=== PATIENT | male | born 1940 | race Caucasian/White ===

== ENCOUNTER → 2016-11-13 | Outpatient (CLI) | payer OTHER ==
--- NOTE | 2016-11-13 16:22 | MR ---
MRI of the Lumbar Spine (Without Contrast) at 1346 hours Clinical Indications: M47.27, spondylosis, with left radiculopathy. Technique: Sagittal and axial T1 and T2 and sagittal STIR MR sequences of the lumbar spine, without contrast. Axial imaging from T12-S1. Findings: Lumbar vertebral bodies are of normal height, without compression fractures. Conus medull avani appears normal and ends at L1-L2. T11-T12: Sagittal images demonstrate moderate degenerative disk disease, with mild disk bulge and ve ntral osteophytes. No central canal or neural foraminal stenosis. T12-L1: Mild degenerative disk disease and mild disk bulge, without central canal or neural foramina l stenosis. L1-L2: Moderate degenerative disk disease, with circumferential disk bulge and mild bilateral facet arthropathy, resulting in mild central canal stenosis, without neural foraminal stenosis. L2-L3: Moderate degenerative disk disease, with right paramedian broad-based 6-mm disk herniation an d moderate bilateral facet arthropathy, resulting in moderate central canal stenosis, minimal retroli sthesis, without neural foraminal stenosis. L3-L4: Mild degenerative disk disease, mild disk bulge, and moderate bilateral facet arthropathy res ulting in mild central canal stenosis, without neural foraminal stenosis. L4-L5: Moderate degenerative disk disease, circumferential disk bulge, left laminectomy, and moderat e right facet arthropathy resulting in moderate left neural foraminal stenosis, mild right neural for aminal stenosis, without central canal stenosis. L5-S1: Moderate degenerative disk disease, with circumferential disk bulge and osteophytes, previous left laminectomy, and mild right facet arthropathy resulting in mild right neural foraminal stenosis , without central canal stenosis. Impressions 1. L2-L3: Moderate central canal stenosis secondary to degenerative grade 1 retrolisthesis, right p aramedian disk herniation, degenerative disk disease, and bilateral facet arthropathy. 2. L3-L4: Mild central canal stenosis secondary to moderate bilateral facet arthropathy, mild degen erative disk disease, and mild disk bulge. 3. Previous left laminectomies at L4-L5 and L5-S1, without central canal stenosis. 4. Please see above findings at specific disk levels.
--- NOTE | 2016-11-13 17:18 | DX ---
Four Views of the Lumbar Spine Standing; AP, Lateral, Flexion and Extension Views Reason for examination: Low back pain and bilateral lower extremity radicular symptomatology in a 76- year-old male. Evaluate for instability. Comparison to lumbar MRI study performed earlier today and previous lumbar radiographic series February 14, 2013. Findings: Multilevel degenerative changes are noted which were fully detailed on the recent MRI repor t. The bone alignment in the neutral position is normal. There is no significant change in alignment with flexion or extension. Impression: Multilevel degenerative changes with no instability identified.
== END ==
LOC: FIMAGING 12:43
PROVIDERS: ATTEND Physician Assistant Surgical
DX: M51.36 Other intervertebral disc degeneration, lumbar region (principal)

== ENCOUNTER 2017-09-13 18:52 | Emergency (ER) | payer OTHER ==
[2017-09-13 19:05] VITALS: TEMP 98.1
--- NOTE | 2017-09-13 19:07 | EDPHY ---
HPI/HX/ROS/PE/MDM Narrative: CHIEF COMPLAINT: Low back pain HPI: The patient is a 76 y/o male with a history of chronic back pain, complaining of back pain and muscle spasms since yesterday. He went for a walk yesterday and felt normal, but one mile into the walk he bent over to tie his shoe and began to have back pain; he did not fall. The pain is decreased while standing and leaning to the left, it is aggravated when he coughs. The pain is also mildly radiating to this legs. He describes his current pain as similar to prior episodes of lumbar back pain. Denies urinary or bowel complaints, numbness or other pertinent symptoms. No fever. REVIEW OF SYSTEMS: Aside from elements discussed in the HPI, a comprehensive 10-point review of systems was reviewed and is negative. PMH: Chronic back pain, L2-3 surgery, hypertension, sleep apnea SOCIAL HISTORY: Friend at bedside, lives in [place], retired PHYSICAL EXAM: General:Patient is standing and leaning to the left, alert, in no acute distress. ENT:Eyes are normal to inspection. ENT inspection normal. Neck: Normal inspection. Full range of motion. Respiratory:No respiratory distress. Breath sounds normal bilaterally. Cardiovascular: Regular rate and rhythm. Strong peripheral pulses. Normal cap refill. Abdomen:The abdomen is nontender to palpation. There are no peritoneal signs. There are normal bowel sounds. No pulsatile mass. Back: Lumbar spine tenderness to palpation. Normal to inspection. Skin: Normal color. No rash. Warm and dry. Extremities: Normal appearance. Full range of motion. Neuro: Oriented x3. Normal motor function. Normal sensory function. ED Course: 2003: Patient is feeling better after 1L IV NS, 0.5mg IV Dilaudid, and 30mg IV Toradol. 2055: Patient's lumbar spine x-ray is negative. 2114: Reassessed patient and discussed imaging findings. He is feeling better after 5mg IV Valium. Return precautions provided; patient is comfortable with this plan. MDM: This gentleman presents with what appears to be an acute exacerbation of chronic lumbar spine pain and radiculopathy. There was no traumatic injury, and patient denies fever, incontinence, numbness, inability to walk, groin anesthesia or abdominal pain. As such, I do not think emergent MRI is indicated. I discussed options with the patient and offered him admission to the hospital for pain control and neurosurgical evaluation, but he declines in favor of going home with prescriptions for pain control. We discussed the fact that his age and use of pain medications in the setting of back pain places him at elevated risk for fall and other injury but he feels he will be safe at home , and his relative is coming over to help him and help him set up a bed in the first floor guest bedroom. I encouraged him to return to the ED tomorrow morning if he feels unsafe at home. 2200: Patient ambulatory without assistance. Steady gait. Feels ready to go home - pain much better. - Data Points Imaging Results: Imaging Impressions Lumbar Spine X-Ray 09/13/17 20:29 Impression: No acute compression fracture or significant change since October 2016. Imaging: I viewed and interpreted images myself Laboratory Results: Laboratory Results 09/13/17 19:18 09/13/17 19:18 09/13/17 09/13/17 19:18 19:18 WBC 2.32 10^3/uL L 10^3/uL (3.80-9.50) RBC 4.25 10^6/uL L 10^6/uL (4.40-6.38) Hgb 13.5 g/dL L g/dL (13.7-17.5) Hct 37.7 % L % (40.0-51.0) MCV 88.7 fL fL (81.5-99.8) MCH 31.8 pg pg (27.9-34.1) MCHC 35.8 g/dL g/dL (32.4-36.7) RDW 13.6 % % (11.5-15.2) Plt Count 126 10^3/uL L 10^3/uL (150-400) MPV 9.8 fL fL (8.7-11.7) Neut % (Auto) 58.6 % % (39.3-74.2) Lymph % (Auto) 30.6 % % (15.0-45.0) [place] % (Auto) 6.9 % % (4.5-13.0) Eos % (Auto) 2.6 % % (0.6-7.6) Baso % (Auto) 0.9 % % (0.3-1.7) Nucleat RBC Rel Count 0.0 % % (0.0-0.2) Absolute Neuts (auto) 1.36 10^3/uL L 10^3/uL (1.70-6.50) Absolute Lymphs (auto) 0.71 10^3/uL L 10^3/uL (1.00-3.00) Absolute Monos (auto) 0.16 10^3/uL L 10^3/uL (0.30-0.80) Absolute Eos (auto) 0.06 10^3/uL 10^3/uL (0.03-0.40) Absolute Basos (auto) 0.02 10^3/uL 10^3/uL (0.02-0.10) Absolute Nucleated RBC 0.00 10^3/uL 10^3/uL (0-0.01) Immature Gran % 0.4 % % (0.0-1.1) Immature Gran # 0.01 10^3/uL 10^3/uL (0.00-0.10) Sodium 129 mEq/L L mEq/L (134-144) Potassium 4.1 mEq/L mEq/L (3.5-5.2) Chloride 97 mEq/L mEq/L (97-110) Carbon Dioxide 20 mEq/l L mEq/l (22-31) Anion Gap 12 mEq/L mEq/L (8-16) BUN 12 mg/dL mg/dL (7-23) Creatinine 1.1 mg/dL mg/dL (0.7-1.3) Estimated GFR > 60 Glucose 102 mg/dL H mg/dL (70-100) Calcium 9.6 mg/dL mg/dL (8.5-10.4) Medications Given: Discontinued Medications Hydrocodone Bitart/Acetaminophen (Ruby 5/325mg Prepack#6) 1 btl TAKEHOME EDNOW ONE Stop: 09/13/17 21:23 Last Admin: 09/13/17 22:00 Dose: 1 btl Diazepam (Valium Injection) 5 mg IVP EDNOW ONE Stop: 09/13/17 20:25 Last Admin: 09/13/17 20:46 Dose: 5 mg Hydromorphone HCl (Dilaudid) 0.5 mg IVP EDNOW ONE Stop: 09/13/17 19:20 Last Admin: 09/13/17 19:52 Dose: 0.5 mg Sodium Chloride (Ns) 1,000 mls @ 0 mls/hr IV EDNOW ONE; Wide Open PRN Reason: Protocol Stop: 09/13/17 19:48 Last Admin: 09/13/17 19:51 Dose: 1,000 mls Ketorolac Tromethamine (Toradol) 30 mg IVP EDNOW ONE Stop: 09/13/17 19:20 Last Admin: 09/13/17 19:51 Dose: 30 mg General Time Seen by Provider: 09/13/17 19:05 Initial Vital Signs: Initial Vital Signs Temperature (C) 36.7 C 09/13/17 19:00 Heart Rate 98 09/13/17 19:00 Respiratory Rate 16 09/13/17 19:00 Blood Pressure 106/61 09/13/17 19:00 O2 Sat (%) 95 09/13/17 19:00 O2 Delivery Mode Room Air O2 (L/minute) 2 Allergies/Adverse Reactions: lorazepam [From Ativan] Allergy (Mild, Verified 12/23/12 12:56) EXCITABLE cyclobenzaprine [From Flexeril] Allergy (Verified 09/13/17 19:05) Home Medications: Medication Instructions Recorded Carisoprodol [Soma (*)] 350 mg PO TIDMEAL #20 tab 09/13/17 Hydrocodone/APAP 5/325 [Ruby 1 - 2 tab PO Q6H PRN #20 tab 09/13/17 5/325 (*)] methylPREDNISolone [Medrol Dose 1 each PO AD #1 ea 09/13/17 Shun] Departure - Departure Disposition: Home, Routine, Self-Care Clinical Impression: Low back pain Qualifiers: Chronicity: acute Back pain laterality: midline Sciatica presence: unspecified whether sciatica present Qualified Code(s): M54.5 - Low back pain Condition: Good Instructions: Hydrocodone/Acetaminophen (By mouth), Acute Low Back Pain (ED), Chronic Back Pain (ED) Additional Instructions: Return to the emergency department for severe pain, fever, numbness, difficulty walking, change in location or nature of pain or other concerns. Use ibuprofen and Tylenol as directed. Take oxycodone, Medrol, and Soma as prescribed. Call you student specialist tomorrow to arrange for evaluation within one week. Referrals: Rose Marie Sethi MD [Primary Care Provider] - As per Instructions Prescriptions: Carisoprodol [Soma (*)] 350 mg PO TIDMEAL #20 tab Hydrocodone/APAP 5/325 [Ruby 5/325 (*)] 1 - 2 tab PO Q6H PRN #20 tab PRN Reason: Pain, Breakthrough methylPREDNISolone [Medrol Dose Shun] 1 each PO AD #1 ea Report Scribed for: Khoa العلي Report Scribed by: Mia Cardenas Date of Report: 09/13/17 Time of Report: 19:06 Physician Review and Approval Statement: Portions of this note were transcribed by an ED scribe. I personally performed the history, physical exam, and medical decision making; and confirm the accuracy of the information in the transcribed note.
[2017-09-13] MEDS ORDERED: KETOROLAC 30 MG/1 ML SDV IVP ONE (19:19)
[2017-09-13] MEDS ORDERED: HYDROmorphONE/DILAUDID 1 MG/ML INJ IVP ONE (19:19)
[2017-09-13 19:37] LABS: % IMMATURE GRANULYOCYTES 0.4 % (0.0-1.1); ABSOLUTE IMMATURE GRANULOCYTES 0.01 10^3/uL (0.00-0.10); ADD DIFF? NO; ADD MORPH? NO; ADD SCAN? NO; ATYPICAL LYMPHOCYTE FLAG 0 (0-99); FRAGMENT RBC FLAG 0 (0-99); HEMATOCRIT 37.7 % (40.0-51.0); HEMOGLOBIN 13.5 g/dL (13.7-17.5); LEFT SHIFT FLG 0 (0-99); LIPEMIA HEMOLYSIS FLAG 90 (0-99); MEAN CELL HEMOGLOBIN 31.8 pg (27.9-34.1); MEAN CELL HEMOGLOBIN CONCENTR. 35.8 g/dL (32.4-36.7); MEAN CELL VOLUME 88.7 fL (81.5-99.8); MEAN PLATELET VOLUME 9.8 fL (8.7-11.7); PLATELET CLUMPS FLAG 0 (0-99); PLATELET COUNT 126 10^3/uL (150-400); RED BLOOD CELL COUNT 4.25 10^6/uL (4.40-6.38); RED CELL DISTRIBUTION WIDTH 13.6 % (11.5-15.2)
[2017-09-13] MEDS ORDERED: NS 1,000 ML IV ONE (19:47)
[2017-09-13 19:50] LABS: ANION GAP 12 mEq/L (8-16); CALCIUM 9.6 mg/dL (8.5-10.4); CARBON DIOXIDE 20 mEq/l (22-31); CHLORIDE 97 mEq/L (97-110); CREATININE 1.1 mg/dL (0.7-1.3); GLOMERULAR FILTRATION RATE > 60; GLUCOSE 102 mg/dL (70-100); POTASSIUM 4.1 mEq/L (3.5-5.2); SODIUM 129 mEq/L (134-144)
[2017-09-13] MEDS ORDERED: DIAZEPAM 10 MG/2 ML SYR IVP ONE (20:24)
[2017-09-13] MEDS ORDERED: HYDROCOD/APAP 5/325 PREPACK#6 BTL TAKEHOME ONE (21:22)
[2017-09-13 22:13] VITALS: BP 136/74; PULSE 97; RESP 18; O2SAT 94
== END 2017-09-13 22:13 | disposition home or self-care (01) ==
DX: M54.5 Low back pain (principal); I10 Essential (primary) hypertension; E86.9 Volume depletion, unspecified
CPT/HCPCS: 72100; J1170; J1885; 96374

== ENCOUNTER 2017-10-06 00:18 | Emergency (ER) | payer OTHER ==
[2017-10-06] MEDS ORDERED: NS 1,000 ML IV ONE (00:25)
--- NOTE | 2017-10-06 00:28 | EDPHY ---
H & P HPI/ROS: HPI CHIEF COMPLAINT: Diarrhea, generalized weakness HISTORY OF PRESENT ILLNESS: Patient is a very pleasant 76-year-old male, significant past medical history for hypertension, chronic back pain and obstructive sleep apnea, presents to the emergency room with diarrhea this evening. He states this started earlier today he has had over 12 episodes of diarrhea. Watery. Denies black tarry stool denies blood in his stool. No fever. Denies vomiting. States he had multiple episodes of diarrhea and feels globally weak. He states he was getting off the toilet this evening and fell forward and landed on the tell without any injury. He decided to call 911 as he is feeling more weak and lives alone is concern for safety. Denies any significant abdominal pain. Past Medical History: Obstructive sleep apnea, hypertension, chronic back pain Past Surgical History: Lumbar surgery Social History: Retired, lives locally, denies illicit drugs alcohol tobacco. Family History: Noncontributory ROS REVIEW OF SYSTEMS: A comprehensive 10 point review of systems is otherwise negative aside from elements mentioned in the history of present illness. Exam Constitutional appears nontoxic triage nursing summary reviewed, vital signs reviewed, awake/alert. Eyes normal conjunctivae and sclera, EOMI, PERRLA. HENT normal inspection, atraumatic, dry mucous membranes, no epistaxis, neck supple/ no meningismus, no raccoon eyes. Respiratory clear to auscultation bilaterally, normal breath sounds, no respiratory distress, no wheezing. Cardiovascular rate normal, regular rhythm, no murmur, no edema, distal pulses normal. Gastrointestinal soft, non-tender, no rebound, no guarding, normal bowel sounds, no distension, no pulsatile mass. Genitourinary no CVA tenderness. Musculoskeletal no midline vertebral tenderness, full range of motion, no calf swelling, no tenderness of extremities, no meningismus, good pulses, neurovascularly intact. Skin pink, warm, & dry, no rash, skin atraumatic. Neurologic awake, alert and oriented x 3, AAOx3, moves all 4 extremities equally, motor intact, sensory intact, CN II-XII intact, normal cerebellar, normal vision, normal speech. Psychiatric normal mood/affect. Heme/Lymph/Immune no lymphadenopathy. Differential Diagnosis: Includes but is not limited to in a particular order dehydration, electrolyte disturbance, enteritis, diarrheal illness, C diff, colitis Medical Decision Making: Plan for this patient IV establishment with blood draw , IV fluid bolus for hydration, check abdominal blood work, check lipase LFTs CBC chemistry panel, urinalysis re-evaluate. GI stool specimen. Re-evaluation: 0206: I did re-evaluate this patient this time is feeling much better after IV fluids. He was able to provide us a stool sample we have sent this. His blood work and vitals have been reviewed. Blood work is unremarkable. He is always neutropenic. He denies any abdominal pain vomiting chest pain or shortness of breath. Denies fever. He states he feels well and would like to go home. He distally reports to me that he scheduled for an MRI is back today he would like to go home so that he can get this done. We will ambulate him around the emergency room to make sure he stable on his feet and has strength to go home. If he ambulates well allowed to go home. Source: Patient, EMS - Medical/Surgical History Hx Asthma: No Hx Chronic Respiratory Disease: No Hx Diabetes: No Hx Cardiac Disease: No Hx Renal Disease: No Hx Cirrhosis: No Hx Alcoholism: No Hx HIV/AIDS: No Hx Splenectomy or Spleen Trauma: No Other PMH: Chronic back pain, L2-3 surg., HTN, sleep apnea - Social History Smoking Status: Never smoked Constitutional: Initial Vital Signs Temperature (C) 36.5 C 10/06/17 00:20 Heart Rate 83 10/06/17 00:20 Respiratory Rate 18 10/06/17 00:20 Blood Pressure 121/82 H 10/06/17 00:20 O2 Sat (%) 91 L 10/06/17 00:20 O2 Delivery Mode Room Air Allergies/Adverse Reactions: lorazepam [From Ativan] Allergy (Mild, Verified 10/06/17 00:46) EXCITABLE cyclobenzaprine [From Flexeril] Allergy (Verified 10/06/17 00:46) Home Medications: Medication Instructions Recorded Hydrocodone/APAP 5/325 [[place]ton 1 - 2 tab PO Q6H PRN #20 tab 09/13/17 5/325 (*)] Eszopiclone [Lunesta] 3 mg PO 10/06/17 Gabapentin 600 mg PO 10/06/17 amLODIPine BESYLATE [Norvasc 10 mg 10 mg PO DAILY 10/06/17 (*)] traZODone [traZODONE 50MG (*)] 50 mg PO HS 10/06/17 Medical Decision Making - Data Points Laboratory Results: Laboratory Results 10/06/17 00:15 10/06/17 00:15 10/06/17 10/06/17 10/06/17 01:00 00:45 00:15 WBC RBC Hgb Hct MCV MCH MCHC RDW Plt Count MPV Neut % (Auto) Lymph % (Auto) [place] % (Auto) Eos % (Auto) Baso % (Auto) Nucleat RBC Rel Count Absolute Neuts (auto) Absolute Lymphs (auto) Absolute Monos (auto) Absolute Eos (auto) Absolute Basos (auto) Absolute Nucleated RBC Immature Gran % Immature Gran # PT INR APTT VBG Lactic Acid 1.2 mmol/L mmol/L (0.7-2.1) Sodium 138 mEq/L mEq/L (134-144) Potassium 4.3 mEq/L mEq/L (3.5-5.2) Chloride 101 mEq/L mEq/L (97-110) Carbon Dioxide 28 mEq/l mEq/l (22-31) Anion Gap 9 mEq/L mEq/L (8-16) BUN 13 mg/dL mg/dL (7-23) Creatinine 1.0 mg/dL mg/dL (0.7-1.3) Estimated GFR > 60 Glucose 105 mg/dL H mg/dL (70-100) Calcium 9.8 mg/dL mg/dL (8.5-10.4) Total Bilirubin 0.3 mg/dL mg/dL (0.1-1.4) Conjugated Bilirubin 0.2 mg/dL mg/dL (0.0-0.5) Unconjugated Bilirubin 0.1 mg/dL mg/dL (0.0-1.1) AST 23 IU/L IU/L (17-59) ALT 36 IU/L IU/L (21-72) Alkaline Phosphatase 73 IU/L IU/L (38-126) Total Protein 6.4 g/dL g/dL (6.3-8.2) Albumin 4.0 g/dL g/dL (3.5-5.0) Lipase 50 IU/L IU/L (23-300) Urine Color YELLOW Urine Appearance CLEAR Urine pH 6.0 (5.0-7.5) Ur Specific [place] 1.012 (1.002-1.030) Urine Protein NEGATIVE (NEGATIVE) Urine Ketones NEGATIVE (NEGATIVE) Urine Blood NEGATIVE (NEGATIVE) Urine Nitrate NEGATIVE (NEGATIVE) Urine Bilirubin NEGATIVE (NEGATIVE) Urine Urobilinogen NEGATIVE EU EU (0.2-1.0) Ur Leukocyte Esterase NEGATIVE (NEGATIVE) Urine Glucose NEGATIVE (NEGATIVE) 10/06/17 10/06/17 00:15 00:15 WBC 3.09 10^3/uL L 10^3/uL (3.80-9.50) RBC 4.32 10^6/uL L 10^6/uL (4.40-6.38) Hgb 13.6 g/dL L g/dL (13.7-17.5) Hct 39.6 % L % (40.0-51.0) MCV 91.7 fL fL (81.5-99.8) MCH 31.5 pg pg (27.9-34.1) MCHC 34.3 g/dL g/dL (32.4-36.7) RDW 13.9 % % (11.5-15.2) Plt Count 123 10^3/uL L 10^3/uL (150-400) MPV 10.4 fL fL (8.7-11.7) Neut % (Auto) 69.3 % % (39.3-74.2) Lymph % (Auto) 20.1 % % (15.0-45.0) [place] % (Auto) 7.1 % % (4.5-13.0) Eos % (Auto) 2.3 % % (0.6-7.6) Baso % (Auto) 0.6 % % (0.3-1.7) Nucleat RBC Rel Count 0.0 % % (0.0-0.2) Absolute Neuts (auto) 2.14 10^3/uL 10^3/uL (1.70-6.50) Absolute Lymphs (auto) 0.62 10^3/uL L 10^3/uL (1.00-3.00) Absolute Monos (auto) 0.22 10^3/uL L 10^3/uL (0.30-0.80) Absolute Eos (auto) 0.07 10^3/uL 10^3/uL (0.03-0.40) Absolute Basos (auto) 0.02 10^3/uL 10^3/uL (0.02-0.10) Absolute Nucleated RBC 0.00 10^3/uL 10^3/uL (0-0.01) Immature Gran % 0.6 % % (0.0-1.1) Immature Gran # 0.02 10^3/uL 10^3/uL (0.00-0.10) PT 12.4 SEC SEC (12.0-15.0) INR 0.90 (0.83-1.16) APTT 27.6 SEC SEC (23.0-38.0) VBG Lactic Acid Sodium Potassium Chloride Carbon Dioxide Anion Gap BUN Creatinine Estimated GFR Glucose Calcium Total Bilirubin Conjugated Bilirubin Unconjugated Bilirubin AST ALT Alkaline Phosphatase Total Protein Albumin Lipase Urine Color Urine Appearance Urine pH Ur Specific [place] Urine Protein Urine Ketones Urine Blood Urine Nitrate Urine Bilirubin Urine Urobilinogen Ur Leukocyte Esterase Urine Glucose Medications Given: Discontinued Medications Sodium Chloride (Ns) 1,000 mls @ 0 mls/hr IV EDNOW ONE; Wide Open PRN Reason: Protocol Stop: 10/06/17 00:26 Last Admin: 10/06/17 00:30 Dose: 1,000 mls Departure - Departure Disposition: Home, Routine, Self-Care Clinical Impression: Dehydration Diarrhea Qualifiers: Diarrhea type: unspecified type Qualified Code(s): R19.7 - Diarrhea, unspecified Condition: Good Instructions: Dehydration (ED), Acute Diarrhea (ED) Additional Instructions: 1. Return emergency room if he develops worsening symptoms includes worsening diarrhea, abdominal pain, fever, vomiting or you feel weak. Referrals: Patient,NotPresent [Unknown] - As per Instructions
[2017-10-06 00:46] VITALS: RESP 18; TEMP 97.7
[2017-10-06 00:48] LABS: ALANINE AMINOTRANSFERASE 36 IU/L (21-72); ALKALINE PHOSPHATASE 73 IU/L (38-126); ANION GAP 9 mEq/L (8-16); ASPARTATE AMINOTRANSFERASE 23 IU/L (17-59); BILIRUBIN,TOTAL 0.3 mg/dL (0.1-1.4); BILIRUBIN-CONJUGATED 0.2 mg/dL (0.0-0.5); BILIRUBIN-UNCONJUGATED 0.1 mg/dL (0.0-1.1); CALCIUM 9.8 mg/dL (8.5-10.4); CARBON DIOXIDE 28 mEq/l (22-31); CHLORIDE 101 mEq/L (97-110); GLOMERULAR FILTRATION RATE > 60; GLUCOSE 105 mg/dL (70-100); POTASSIUM 4.3 mEq/L (3.5-5.2); SODIUM 138 mEq/L (134-144); TOTAL PROTEIN 6.4 g/dL (6.3-8.2)
[2017-10-06 00:50] LABS: % IMMATURE GRANULYOCYTES 0.6 % (0.0-1.1); ABSOLUTE IMMATURE GRANULOCYTES 0.02 10^3/uL (0.00-0.10); ADD DIFF? NO; ADD MORPH? NO; ADD SCAN? NO; ATYPICAL LYMPHOCYTE FLAG 0 (0-99); FRAGMENT RBC FLAG 0 (0-99); HEMATOCRIT 39.6 % (40.0-51.0); HEMOGLOBIN 13.6 g/dL (13.7-17.5); LEFT SHIFT FLG 0 (0-99); LIPEMIA HEMOLYSIS FLAG 90 (0-99); MEAN CELL HEMOGLOBIN 31.5 pg (27.9-34.1); MEAN CELL HEMOGLOBIN CONCENTR. 34.3 g/dL (32.4-36.7); MEAN CELL VOLUME 91.7 fL (81.5-99.8); MEAN PLATELET VOLUME 10.4 fL (8.7-11.7); PLATELET CLUMPS FLAG 0 (0-99); PLATELET COUNT 123 10^3/uL (150-400); RED BLOOD CELL COUNT 4.32 10^6/uL (4.40-6.38); RED CELL DISTRIBUTION WIDTH 13.9 % (11.5-15.2)
[2017-10-06 01:18] LABS: COLOR YELLOW; LEUKOCYTE ESTERASE,URINE NEGATIVE (NEGATIVE); NITRITE,URINE NEGATIVE (NEGATIVE)
[2017-10-06 01:20] LABS: INR 0.9 (0.83-1.16); PROTIME(PATIENT) 12.4 SEC (12.0-15.0)
[2017-10-06 01:21] LABS: APTT 27.6 SEC (23.0-38.0)
[2017-10-06 02:26] VITALS: BP 103/70; PULSE 79; O2SAT 92
== END 2017-10-06 02:25 | disposition home or self-care (01) ==
LOC: EDUNIT#
DX: E86.0 Dehydration (principal); I10 Essential (primary) hypertension; E86.9 Volume depletion, unspecified

== ENCOUNTER 2017-10-06 12:32 | Inpatient (IN) | payer OTHER ==
--- NOTE | 2017-10-06 13:09 | EDPHY ---
H & P Stated Complaint: Diarrhea Time Seen by Provider: 10/06/17 13:09 - Personal History Current Tetanus Diphtheria and Acellular Pertussis (TDAP): Yes - Medical/Surgical History Hx Asthma: No Hx Chronic Respiratory Disease: No Hx Diabetes: No Hx Cardiac Disease: No Hx Renal Disease: No Hx Cirrhosis: No Hx Alcoholism: No Hx HIV/AIDS: No Hx Splenectomy or Spleen Trauma: No Other PMH: Chronic back pain, L2-3 surg., HTN, sleep apnea - Social History Smoking Status: Never smoked Constitutional: Initial Vital Signs Temperature (C) 36.4 C 10/06/17 12:35 Heart Rate 108 H 10/06/17 12:35 Respiratory Rate 18 10/06/17 12:35 Blood Pressure 106/70 10/06/17 12:35 O2 Sat (%) 94 10/06/17 12:35 O2 Delivery Mode Room Air Allergies/Adverse Reactions: lorazepam [From Ativan] Allergy (Mild, Verified 10/06/17 12:35) EXCITABLE cyclobenzaprine [From Flexeril] Allergy (Verified 10/06/17 12:35) Home Medications: Medication Instructions Recorded Aspirin [Aspirin 81mg (*)] 81 mg PO DAILY 10/06/17 Eszopiclone [Lunesta] 3 mg PO HS 10/06/17 Gabapentin [Neurontin 300 MG (*)] 600 mg PO QID PRN 10/06/17 Hydrocodone/APAP 5/325 [[place] 1 - 2 tab PO BID PRN 10/06/17 5/325 (*)] Levothyroxine [Synthroid 150 mcg 150 mcg PO DAILY06 10/06/17 (*)] Ondansetron Odt [Zofran Odt 4 mg 4 mg PO Q4 PRN #10 tab 10/06/17 (RX)] Sertraline HCl [Zoloft 100mg (*)] 100 mg PO DAILY 10/06/17 amLODIPine BESYLATE [Norvasc 10 mg 10 mg PO DAILY 10/06/17 (*)] buPROPion SR [Wellbutrin 100mg SR 100 mg PO BID 10/06/17 (*)] traZODone [traZODONE 50MG (*)] 50 mg PO HS 10/06/17 Medical Decision Making ED Course/Re-evaluation: CHIEF COMPLAINT: Diarrhea, weakness HISTORY OF PRESENT ILLNESS: The patient is a 76 y/o male returning to the ED for the second time today complaining of "untenable diarrhea" for the last 2 weeks and progressive weakness. He states he had "at least 16 bowel movements yesterday" before coming into the ED. While here, he had a full lab panel and GI panel run, which were normal apart from baseline neutropenia. This morning he woke up around 03:00, 10.5 hours ago, with urinary urgency, but instead had a watery, non-bloody bowel movement. He denies any recent antibiotic use, but has been on "a bundle of drugs" for recent worsening back pain. This pain has been going on for the last several months and has caused weakness and a few falls, though he denies trauma. He describes "lower body staggering" rather than focal weakness or paresthesias. He was evaluated in the ED for this on , 3 weeks ago, and declined admission at that time. He is currently scheduled for an MRI for further evaluation and is currently using Vicodin and methocarbamol for pain. There is some concern these are contributing to his weakness and lack of coordination. Prior to his back pain he was relatively active and walked his dog twice daily. REVIEW OF SYSTEMS: A 10 point review of systems was performed and is negative with the exception of the elements mentioned in the history of present illness. PHYSICAL EXAM: HR, BP, O2 Sat, RR. Temp noted General Appearance: Alert, well hydrated, appropriate, and non-toxic appearing. Head: Atraumatic without scalp tenderness or obvious injury Eyes: Pupils equal, round, reactive to light and accommodation, EOMI, no trauma , no injection. Nose: Atraumatic, no rhinorrhea, clear. Throat: Mucus membranes dry Neck: Supple, nontender, no lymphadenopathy. Respiratory: No retractions, no distress, no wheezes, and no accessory muscle use. Lungs are clear to auscultation bilaterally. Cardiovascular: Regular rate and rhythm, no murmurs, rubs, or gallops. Good capillary refill all extremities. Gastrointestinal: Abdomen is soft, nontender, non-distended, no masses, no rebound, no guarding, no peritoneal signs. Musculoskeletal: Normal active ROM of all extremities, atraumatic. No back pain with leg raise bilaterally. Neurological: Alert, appropriate, and interactive. The patient has normal DTRs and non-focal cranial nerves, motor, sensory, and cerebellar exam. Skin: No rashes, good turgor, no nodules on palpation. Past medical history: Back pain, neutropenia, hypertension, sleep apnea Past surgical history: L2-L3 surgery - [address] Blackwood Family history: Noncontributory Social history: Lives alone in [place]. Retired. Friend at bedside. DIFFERENTIAL DIAGNOSIS: The differential diagnosis for the patient's diarrhea included but was not limited to gastroenteritis, gastritis, appendicitis, and medication side effect. MEDICAL DECISION MAKING: This is a 76 y/o male with underlying chronic back pain and weakness who presents with a progressive 2-week history of diarrhea that worsened acutely yesterday. His back pain has also progressed over the last 3 weeks and has lead to unsteadiness and falls. Between this and his frequent trips to the bathroom while at his home alone, he is at risk for trauma from falling and is minimally able to care for himself independently right now. He has normal motor function on exam. Due to these factors I recommended admission, which he agrees to. Plan for IV, labs, and fluid repletion. 1L IV NS administered. 1405: Consulted with Dr. Aldrich's PA, neurosurgery. They will follow patient during admission. 1412: Spoke with hospitalist service. Dr. Mercer accepts admission. Patient had MRI completed while still in the ED waiting for a room upstairs. The biodiesel processing technician noted his bladder was quite full and ED RN scanned him revealing 1L urine. Patient was unaware he needed to urinate. Porter catheter placed and Dr. Boss updated. - Data Points Laboratory Results: Laboratory Results 10/06/17 13:20 10/06/17 13:20 10/06/17 10/06/17 10/06/17 13:20 13:20 13:20 WBC RBC Hgb Hct MCV MCH MCHC RDW Plt Count MPV Neut % (Auto) Lymph % (Auto) Harris % (Auto) Eos % (Auto) Baso % (Auto) Nucleat RBC Rel Count Absolute Neuts (auto) Absolute Lymphs (auto) Absolute Monos (auto) Absolute Eos (auto) Absolute Basos (auto) Absolute Nucleated RBC Immature Gran % Immature Gran # PT 13.7 SEC SEC (12.0-15.0) INR 1.03 (0.83-1.16) APTT 27.5 SEC SEC (23.0-38.0) Sodium 138 mEq/L mEq/L (134-144) Potassium 4.0 mEq/L mEq/L (3.5-5.2) Chloride 104 mEq/L mEq/L (97-110) Carbon Dioxide 25 mEq/l mEq/l (22-31) Anion Gap 9 mEq/L mEq/L (8-16) BUN 10 mg/dL mg/dL (7-23) Creatinine 1.0 mg/dL mg/dL (0.7-1.3) Estimated GFR > 60 Glucose 97 mg/dL mg/dL (70-100) Calcium 8.9 mg/dL mg/dL (8.5-10.4) Total Bilirubin 0.3 mg/dL mg/dL (0.1-1.4) Conjugated Bilirubin 0.2 mg/dL mg/dL (0.0-0.5) Unconjugated Bilirubin 0.1 mg/dL mg/dL (0.0-1.1) AST 22 IU/L IU/L (17-59) ALT 27 IU/L IU/L (21-72) Alkaline Phosphatase 65 IU/L IU/L (38-126) Total Protein 5.7 g/dL L g/dL (6.3-8.2) Albumin 3.5 g/dL g/dL (3.5-5.0) Lipase 26 IU/L IU/L (23-300) TSH Pending 10/06/17 13:20 WBC 2.43 10^3/uL L 10^3/uL (3.80-9.50) RBC 3.96 10^6/uL L 10^6/uL (4.40-6.38) Hgb 12.5 g/dL L g/dL (13.7-17.5) Hct 36.4 % L % (40.0-51.0) MCV 91.9 fL fL (81.5-99.8) MCH 31.6 pg pg (27.9-34.1) MCHC 34.3 g/dL g/dL (32.4-36.7) RDW 13.9 % % (11.5-15.2) Plt Count 117 10^3/uL L 10^3/uL (150-400) MPV 10.5 fL fL (8.7-11.7) Neut % (Auto) 79.0 % H % (39.3-74.2) Lymph % (Auto) 9.1 % L % (15.0-45.0) Harris % (Auto) 9.1 % % (4.5-13.0) Eos % (Auto) 1.6 % % (0.6-7.6) Baso % (Auto) 0.8 % % (0.3-1.7) Nucleat RBC Rel Count 0.0 % % (0.0-0.2) Absolute Neuts (auto) 1.92 10^3/uL 10^3/uL (1.70-6.50) Absolute Lymphs (auto) 0.22 10^3/uL L 10^3/uL (1.00-3.00) Absolute Monos (auto) 0.22 10^3/uL L 10^3/uL (0.30-0.80) Absolute Eos (auto) 0.04 10^3/uL 10^3/uL (0.03-0.40) Absolute Basos (auto) 0.02 10^3/uL 10^3/uL (0.02-0.10) Absolute Nucleated RBC 0.00 10^3/uL 10^3/uL (0-0.01) Immature Gran % 0.4 % % (0.0-1.1) Immature Gran # 0.01 10^3/uL 10^3/uL (0.00-0.10) PT INR APTT Sodium Potassium Chloride Carbon Dioxide Anion Gap BUN Creatinine Estimated GFR Glucose Calcium Total Bilirubin Conjugated Bilirubin Unconjugated Bilirubin AST ALT Alkaline Phosphatase Total Protein Albumin Lipase TSH Medications Given: Loperamide HCl (Imodium) 2 mg PO QID PRN PRN Reason: Diarrhea/Loose Stools Stop: 04/04/18 15:32 Last Admin: 10/06/17 16:31 Dose: 2 mg Discontinued Medications Sodium Chloride (Ns) 1,000 mls @ 0 mls/hr IV EDNOW ONE; Wide Open PRN Reason: Protocol Stop: 10/06/17 13:31 Last Admin: 10/06/17 13:47 Dose: 1,000 mls Departure - Departure Disposition: [facility] Acute Clinical Impression: Intractable diarrhea, Weakness, Frequent falls Back pain Qualifiers: Back pain location: low back pain Chronicity: unspecified Back pain laterality : unspecified Sciatica presence: unspecified whether sciatica present Qualified Code(s): M54.5 - Low back pain Condition: Fair Report Scribed for: Jase Quiles Report Scribed by: Rachel Sosa Date of Report: 10/06/17 Time of Report: 14:02
[2017-10-06] MEDS ORDERED: NS 1,000 ML IV ONE (13:30)
[2017-10-06 13:45] LABS: % IMMATURE GRANULYOCYTES 0.4 % (0.0-1.1); ABSOLUTE IMMATURE GRANULOCYTES 0.01 10^3/uL (0.00-0.10); ADD DIFF? NO; ADD MORPH? NO; ADD SCAN? NO; ATYPICAL LYMPHOCYTE FLAG 0 (0-99); FRAGMENT RBC FLAG 0 (0-99); HEMATOCRIT 36.4 % (40.0-51.0); HEMOGLOBIN 12.5 g/dL (13.7-17.5); LEFT SHIFT FLG 0 (0-99); LIPEMIA HEMOLYSIS FLAG 90 (0-99); MEAN CELL HEMOGLOBIN 31.6 pg (27.9-34.1); MEAN CELL HEMOGLOBIN CONCENTR. 34.3 g/dL (32.4-36.7); MEAN CELL VOLUME 91.9 fL (81.5-99.8); MEAN PLATELET VOLUME 10.5 fL (8.7-11.7); PLATELET CLUMPS FLAG 0 (0-99); PLATELET COUNT 117 10^3/uL (150-400); RED BLOOD CELL COUNT 3.96 10^6/uL (4.40-6.38); RED CELL DISTRIBUTION WIDTH 13.9 % (11.5-15.2)
[2017-10-06 13:54] LABS: APTT 27.5 SEC (23.0-38.0)
[2017-10-06 14:00] LABS: ALANINE AMINOTRANSFERASE 27 IU/L (21-72); ALBUMIN 3.5 g/dL (3.5-5.0); ALKALINE PHOSPHATASE 65 IU/L (38-126); ANION GAP 9 mEq/L (8-16); ASPARTATE AMINOTRANSFERASE 22 IU/L (17-59); BILIRUBIN,TOTAL 0.3 mg/dL (0.1-1.4); BILIRUBIN-CONJUGATED 0.2 mg/dL (0.0-0.5); BILIRUBIN-UNCONJUGATED 0.1 mg/dL (0.0-1.1); CALCIUM 8.9 mg/dL (8.5-10.4); CARBON DIOXIDE 25 mEq/l (22-31); CHLORIDE 104 mEq/L (97-110); GLOMERULAR FILTRATION RATE > 60; GLUCOSE 97 mg/dL (70-100); INR 1.03 (0.83-1.16); PROTIME(PATIENT) 13.7 SEC (12.0-15.0); SODIUM 138 mEq/L (134-144); TOTAL PROTEIN 5.7 g/dL (6.3-8.2)
[2017-10-06] MEDS ORDERED: ONDANSETRON 4 MG/2 ML VIAL IVP PRN (14:25)
[2017-10-06] MEDS ORDERED: ACETAMINOPHEN 325 MG TAB PO PRN (14:25)
[2017-10-06] MEDS ORDERED: ONDANSETRON DISINTEGRATING 4 MG TAB PO PRN (14:25)
[2017-10-06] MEDS ORDERED: LR 1,000 ML IV SCH (16:00)
[2017-10-06] MEDS: LOPERAMIDE HCL 2 MG CAP PO PRN ×3 (16:29→21:59)
--- NOTE | 2017-10-06 16:35 | GHP ---
[f rep st] HISTORY AND PHYSICAL DATE OF ADMISSION: 10/06/2017 CHIEF COMPLAINT: Diarrhea, falls. Dr. Cleary is the primary oncologist. Has a psychiatrist, uncertain of name. HPI: This is a 76-year-old male with history of chronic back pain, hypertension , depression, who presented 10/05/2017, to the ER here with several days of diarrhea. He states it started on Thursday without abdominal pain. No blood in the stool. Denies fevers, chills, or sweats. No recent travel or ill contacts. He presented here last night and received IV fluids and was discharged home. GI panel was negative. Last night, he then fell 2 times in the restroom, 1 in which he almost missed the toilet. The 2nd time, he said he fell and landed on some towels on his buttocks. Did not have any loss of consciousness. He was started on Robaxin on Thursday, of which he took 1 dose. Also states that trazodone is a new medication over the past week for severe insomnia since . He has been alternating between Ambien and Lunesta without success. Denies any chest pain, shortness of breath, dizziness or lightheadedness or loss of consciousness. States that his legs have felt more weak over the last 4-5 days. It took him 15 minutes to get out of bed this morning. REVIEW OF SYSTEMS: I completed a 10-point review of systems, negative except as noted in HPI. PAST MEDICAL HISTORY: OHS/KATELYN on CPAP; right upper lobe nodules, stable on CAT scan 03/04; history of lung cancer 2000, 2008; L2, L3, L4, S1 stenosis; depression; hypertension; thyroid cancer 1999, papillary, status post thyroidectomy; BPH; chronic neutropenia. PAST SURGICAL HISTORY: Thyroidectomy. Back surgery 1990, 1995, most recently [address] Pepper. FAMILY HISTORY: Coronary disease. SOCIAL HISTORY: Lives in [place] alone. No illicit tobacco or alcohol. His daughter and grandchildren live in [place]. ALLERGIES: Flexeril, Ativan. HOME MEDICATIONS: Wellbutrin 100 mg b.i.d.; sertraline 100 mg daily; Synthroid 150 mcg daily; Lunesta 3 mg q.h.s.; aspirin 81 mg daily; trazodone 50 mg q.h.s, new over the past week; Norvasc 10 mg daily; [place]; gabapentin 600 mg q.i.d.; Zofran. PHYSICAL EXAMINATION: VITAL SIGNS: Temperature 36.4, blood pressure 106/70, heart rate is in the 90s, respirations 18, 83% on room air, 92% on 2 L. LABS: Sodium 138, potassium 4, chloride 104, carbon dioxide 25, BUN 10, creatinine 1, glucose 97. LFTs within normal. Total protein 5.7, albumin is 3.5, lipase 26. UA is negative. GIPCR at 10/05 is negative. WBC is 2.4, hemoglobin 12, hematocrit 36, platelets 126. Lumbar x-ray 09/13/2017: No acute compression fracture or significant change since October 2016. ASSESSMENT AND PLAN: 1. Acute diarrhea, unclear etiology. May be related to Robaxin or trazodone. A GI panel was negative. Will provide p.r.n. Imodium and hydrate. 2. Weakness. Suspect this is multifactorial with acute diarrhea and polypharmacy is a large concern, given new medications of Robaxin and trazodone. Will be cautious about restarting these medications. Will check a TSH, ESR, and CRP. PT/OT. 3. Chronic back pain: Dr. Parson is aware of patient here and will consult. 4. Depression. Wellbutrin. 5. Hypertension. Normotensive here. 6. History of obesity hypoventilation syndrome. Continue CPAP. 7. History of thyroid cancer. Again, TSH pending. 8. History of lung cancer, stable right upper lobe nodule noted 03/04. He is followed by Dr. Cleary. 9. Neutropenia. This appears to be chronic. He is afebrile here and denies any fevers at home. 10. Diet: Regular. 11. DVT prophylaxis: Lovenox. DISPOSITION: Patient warrants inpatient admission given acute diarrhea, dehydration warranting IV fluids, imaging per Neurosurgery, and PT/OT. /[id number]/MODL MTDD
--- NOTE | 2017-10-06 20:13 | GCON ---
[f rep st] CONSULTATION DATE OF CONSULTATION: 10/06/2017 Consultation in the emergency room at approximately 2:20 p.m. REASON FOR CONSULTATION: Back pain. HOSPITAL COURSE, HISTORY, AND MAJOR MEDICAL FINDINGS: The patient is a 76-year- old gentleman who is well known to [facility] with Dr. Sha Oliveira's office. He was most recently seen by one of his PAs yesterday for worsening back pain. He was also recently seen in the emergency room for this back pain exacerbation and was placed on a Medrol Dosepak at that time. He has undergone a prior lumbar diskectomy with Dr. Pepper in 2004. He has also tried Tylenol, as well as NSAIDs and activity modification, and states that his balance has been off, and he has been having a hard time walking. Today, he presented to [facility] with a primary complaint of diarrhea. He was seen by the ER physicians and will be admitted to Medicine for further workup of his fatigue and diarrhea. The patient denies any saddle anesthesia. Denies any urinary incontinence. Denies any stool incontinence. He is currently taking hydrocodone and Robaxin for pain. REVIEW OF SYSTEMS: Negative other than what is stated in the HPI. Please see pertinent negatives and pertinent positives. PAST MEDICAL HISTORY: Significant for history of prior lumbar laminectomy with low back pain, neutropenia, hypertension, sleep apnea. PAST SURGICAL HISTORY: Significant for the L2-L3 laminectomy with Dr. Pepper in 2004. FAMILY HISTORY: Noncontributory. SOCIAL HISTORY: The patient does live by himself in [place]. He is retired. He does not smoke, and he has a friend with him today in the exam room. ALLERGIES: Lorazepam and cyclobenzaprine. HOME MEDICATIONS: Include [place] 5/325 one or two tabs q.6 hours p.r.n. pain, Robaxin 750 mg 1 p.o. q.8 hours p.r.n. muscle spasms, Lunesta 3 mg p.o. at bedtime, gabapentin 600 mg p.o. daily, Zofran 4 mg p.o. q.4 hours p.r.n. nausea , amlodipine 10 mg 1 p.o. daily, and trazodone 50 mg 1 p.o. at bedtime. PHYSICAL EXAM: VITALS: BP is 105/61, pulse is 93, respiratory rate is 92% on 2 L nasal cannula. Temp is 36.4. The patient is in no acute distress. He is alert and oriented x3. Answers questions appropriately. His affect is appropriate to given situation. Cranial nerves 2-12 are grossly intact. EOMI and PERRLA. Patient is 5/5 and equal in his bilateral upper extremities, including deltoids, triceps, biceps, wrist flexors, extensors, interossei, intrinsic cattle dipper, and in the bilateral lower extremities, including iliopsoas, hamstrings, quadriceps, plantar flexion, dorsiflexion, EHL. His sensation is intact in bilateral upper and bilateral lower extremities. ASSESSMENT/PLAN: The patient is a 76-year-old gentleman who is well known to Dr. Parson's clinic, who was recently seen yesterday, and a new MRI was ordered for his back pain and overall leg weakness with walking. At this point in time, we will go ahead and let Medicine complete their workup for his continued diarrhea. We will order a lumbar MRI to evaluate for any stenosis or compression contributing to his weakness. This is discussed in detail with Dr. Parson's PA, as well as with Dr. Boss, who saw the patient in the ER today as well. If patient has any change in neurologic or motor exam, please notify Neurosurgery. /[id number]/MODL MTDD
[2017-10-06] MEDS ORDERED: MELATONIN 3 MG TAB PO SCH (21:00)
[2017-10-06] MEDS ORDERED: GABAPENTIN 300 MG CAP PO PRN (22:30)
[2017-10-06] MEDS ORDERED: HYDROCODONE/APAP 5/325 TAB PO PRN (22:30)
[2017-10-07 04:56] LABS: % IMMATURE GRANULYOCYTES 1.1 % (0.0-1.1); ABSOLUTE IMMATURE GRANULOCYTES 0.02 10^3/uL (0.00-0.10); ADD DIFF? NO; ADD MORPH? NO; ADD SCAN? NO; ATYPICAL LYMPHOCYTE FLAG 10 (0-99); FRAGMENT RBC FLAG 0 (0-99); HEMATOCRIT 31.9 % (40.0-51.0); HEMOGLOBIN 10.9 g/dL (13.7-17.5); LEFT SHIFT FLG 0 (0-99); LIPEMIA HEMOLYSIS FLAG 90 (0-99); MEAN CELL HEMOGLOBIN 31.5 pg (27.9-34.1); MEAN CELL HEMOGLOBIN CONCENTR. 34.2 g/dL (32.4-36.7); MEAN CELL VOLUME 92.2 fL (81.5-99.8); MEAN PLATELET VOLUME 11.1 fL (8.7-11.7); PLATELET CLUMPS FLAG 10 (0-99); PLATELET COUNT 106 10^3/uL (150-400); RED BLOOD CELL COUNT 3.46 10^6/uL (4.40-6.38); RED CELL DISTRIBUTION WIDTH 14.1 % (11.5-15.2)
[2017-10-07 05:25] LABS: ANION GAP 8 mEq/L (8-16); CALCIUM 8.4 mg/dL (8.5-10.4); CARBON DIOXIDE 24 mEq/l (22-31); CHLORIDE 109 mEq/L (97-110); CREATININE 0.8 mg/dL (0.7-1.3); GLOMERULAR FILTRATION RATE > 60; GLUCOSE 82 mg/dL (70-100); POTASSIUM 3.9 mEq/L (3.5-5.2); SODIUM 141 mEq/L (134-144)
[2017-10-07] MEDS ORDERED: LEVOTHYROXINE 150 MCG TAB PO SCH (06:00)
--- NOTE | 2017-10-07 08:24 | NEUSURGPN ---
<Delon Bowling - Last Filed: 10/07/17 16:12> Assessment/Plan: 76M admitted for diarrhea and w/ Urinary retention, known NS patient w/ complaint of weakness in legs and feelings of unsteadiness with gait. Pt is neuro intact with no gross weakness noted on exam. -medicine to treat acute medical issues -MRI LSpine does not show severe stenosis that could explain his generalized weakness, final review pending by Dr. Boss -If no concerning findings seen by Dr. Monteiro read, NS will sign off. Pt can get flexion extension lumbar films and follow with us outpatient. DW Dr. Boss Subjective: diarrhea is better. No saddle anesthesia, no numbness/tingling/burning in BLE. Not having any issues with his recent back pain at this time. Objective: NAD VSS AAOx3 EOMI, PEARLA cnii-xii grossly intact MAEx4, 5/5= reflexes 1+BLE, no clonus SILT,SIPP Urinary Catheter in Place: Yes Urinary Catheter Indication: Acute Urinary Retention Catheter Insertion Date: 10/06/17 - Physician Discussed Patient with : Karyn Neurosurgery Physical Exam - Vitals, I&O, Labs I and O 10/06/17 10/07/17 10/08/17 05:59 05:59 05:59 Intake Total 2000 Output Total 2300 Balance -300 Weight 72.575 kg Intake: Oral (ml) 700 IV Infused (ml) 1300 Lr 1,000 ml @ 75 mls/hr 300 IV CONT GERBER Rx#: [id number] Output: Urine (ml) 2300 Catheter 2300 Vital Signs Temp Pulse Resp BP Pulse Ox 36.9 C 76 16 91/60 L 93 10/07/17 04:00 10/07/17 04:00 10/07/17 04:00 10/07/17 04:00 10/07/17 04:00 Laboratory Results 10/07/17 04:28 10/07/17 04:28 ICD10 Worksheet Patient Problems: Problems Problem Status Onset Back pain Acute Frequent falls Acute Intractable diarrhea Acute Weakness Acute <Tamir Boss - Last Filed: 10/07/17 20:04> Assessment/Plan: I have reviewed his lumbar spine MRI and there is no concerning lumbar stenosis. I suspect his issues are medical for now. Will sign off and have him return to clinic with Dr V as scheduled. Will defer to Medicine about his dispo. Neurosurgery Physical Exam - Vitals, I&O, Labs I and O 10/06/17 10/07/17 10/08/17 05:59 05:59 05:59 Intake Total 2000 Output Total 2300 Balance -300 Weight 72.575 kg Intake: Oral (ml) 700 IV Infused (ml) 1300 Lr 1,000 ml @ 75 mls/hr 300 IV CONT GERBER Rx#: [id number] Output: Urine (ml) 2300 Catheter 2300 Vital Signs Temp Pulse Resp BP Pulse Ox 37 C 67 12 111/66 95 10/07/17 08:00 10/07/17 08:00 10/07/17 08:00 10/07/17 10:16 10/07/17 08:00 Laboratory Results 10/07/17 04:28 10/07/17 04:28
[2017-10-07] MEDS ORDERED: SERTRALINE HCL 100 MG TAB PO SCH (09:00)
[2017-10-07] MEDS ORDERED: buPROPion SR 100 MG TAB PO SCH (09:00)
[2017-10-07] MEDS ORDERED: ASPIRIN 81 MG CHEWABLE TAB PO SCH (09:00)
[2017-10-07 10:12] VITALS: BP 111/66; PULSE 67; RESP 12; TEMP 98.6; O2SAT 95
--- NOTE | 2017-10-07 11:26 | PDMN ---
Medical Necessity Medical necessity: est los>2mn for acute diarrhea of unclear etiology, weakness w/concern re: polypharmacy, falls, chronic back pain, and dehydration; admit for IVF, imaging per NS, PT/OT; comorbid htn, obesity hypoventilation syndrome on CPAP, hx lung and thyroid cancer, chronic neutropenia; per order and H&P
--- NOTE | 2017-10-07 11:48 | ASMTCMCOM ---
CM Note CM Note Notes: Patient admitted for weakness, falls, diarrhea. He was examined by Neurosurg who found no explanation for his acute weakness. He was recently started on some new medications, so polypharmacy is being considered. Patient is normally independent, lives with his . PT/OT evals have been ordered and are pending. Case Management will follow for discharge planning. Current CM Discharge plan: TBD Date Signed: 10/07/2017 11:48 AM Electronically Signed By:Marcela Arzola RN
--- NOTE | 2017-10-08 02:24 | GDS ---
[f rep st] DISCHARGE SUMMARY DISCHARGE DIAGNOSES: 1. Acute diarrhea, self-limited. 2. Obstructive sleep apnea, obesity hypoventilation. syndrome, on CPAP. 1. History of lung cancer. 2. Lumbar and sacral stenosis, chronic. 3. Depression. 4. Hypertension. 5. History of papillary thyroid cancer, status post thyroidectomy. 6. Benign prostatic hypertrophy. 7. Chronic neutropenia. HISTORY OF PRESENT ILLNESS: A 76-year-old male, who presents with acute onset diarrhea, 10-12 stools a day. For details of the patient's initial presentation, please see the history and physical dated 10/06/2017. CONSULTATIVE SERVICES: Neurosurgery. PROCEDURES: On 10/06/2017, patient had lumbar spine MRI that showed mild stenosis of L2 through L3 p darien various other levels of moderate degenerative disk disease. HOSPITAL COURSE: By issue: 1. Acute diarrhea. Patient had been recently initiated on Robaxin, trazodone. Reports voluminous d iarrhea described as nonbloody. Patient was admitted. GI pathogen panel was sent, which was negativ e. He was hydrated and treated supportively and had complete resolution of his diarrhea overnight. It is unclear to me if the resolution of his symptoms was related to a self-limited viral process or related to withholding the 2 new medications. On the day of disposition, the patient is tolerating p .o. intake without complication and has not passed stool since the evening prior on admission. We ar e discharging with recommendations for ongoing attention to his fluid and nutritional intake and cont inue withholding the 2 new medications for now, and he is to follow in the outpatient setting with hi s primary care provider. 2. Chronic low back pain. Patient did have MRI imaging as described above. Neurosurgery consulted and felt he was a candidate for outpatient followup. They agreed with his current pain regimen presc ribed in the outpatient setting. 3. BPH. Patient is followed by outpatient Urology. He did have a Porter catheter placed in the [facility] department, which was removed prior to discharge, and he was voiding successfully on his own pr ior to disposition. MEDICATIONS: At the time of discharge, please reference the med receive. Of note the only changes o rdered discontinuation of trazodone and Robaxin. FOLLOWUP APPOINTMENTS: 1. With outpatient PCP for post discharge followup of his diarrhea. 2. Outpatient Urology for ongoing management of his chronic urinary retention. 3. Neurosurgery for ongoing management of his chronic low back pain. PENDING STUDIES: At the time of this dictation are none. TIME SPENT: I spent greater than 30 minutes in the planning and coordination of this discharge. /[id number]/MODL
--- NOTE | 2017-10-08 12:40 | ASDISCHSUM ---
Discharge Information Plan Status:Home with No Needs Medically Cleared to Leave:10/06/2017 Discharge Date:10/07/2017 04:31 PM D/C Disposition: ADT D/C Disposition:Home, Routine, Self-Care Projected Discharge Date:10/07/2017 12:00 AM Transportation at D/C: Discharge Delay Reason: Follow-Up Date:10/07/2017 12:00 AM Discharge Slot: Final Diagnosis: Placement Information Patient Contact Information Contact Name:ADITYA Relationship: Address:[address] [place] [address] City:[place] Alternate Phone: [facility]/Zip Code:[place] [address] Email: Financial Information Financial Class: Primary Plan Desc:MEDICARE INPATIENT Primary Plan Number:[id number] Secondary Plan Desc:TIM Secondary Plan Number:[id number] Assessment Information [facility] CM Progress Note CM Note CM Note Notes: Patient admitted for weakness, falls, diarrhea. He was examined by Neurosurg who found no explanation for his acute weakness. He was recently started on some new medications, so polypharmacy is being considered. Patient is normally independent, lives with his . PT/OT evals have been ordered and are pending. Case Management will follow for discharge planning. Current CM Discharge plan: TBD Date Signed: 10/07/2017 11:48 AM Electronically Signed By:Marcela Arzola RN Intervention Information Intervention Type:*Incorrect Registration Date of Service:10/07/2017 11:17 AM Patient Type:Observation Staff Member:ARLINE Garcia Susan Hours: Discipline: Severity: Comment:
== END 2017-10-07 16:31 | disposition home or self-care (01) | DRG 394 ==
LOC: UNDOADMOB 14:14 → OBSVTOIN 14:25 → F3E 18:14
PROVIDERS: ADMIT Internal Medicine; ATTEND Internal Medicine
DX: K52.1 Toxic gastroenteritis and colitis (principal); E66.2 Morbid (severe) obesity with alveolar hypoventilation; E86.0 Dehydration; G89.29 Other chronic pain; F32.9 Major depressive disorder, single episode, unspecified; I10 Essential (primary) hypertension; D70.9 Neutropenia, unspecified; T43.215A Adverse effect of selective serotonin and norepinephrine reuptake inhibitors, initial encounter; T48.1X5A Adverse effect of skeletal muscle relaxants [neuromuscular blocking agents], initial encounter; Z85.118 Personal history of other malignant neoplasm of bronchus and lung; Z85.850 Personal history of malignant neoplasm of thyroid
CPT/HCPCS: 97161-GP; 97165-GO; 97535-GO; G8978-GP-CI; G8979-GP-CI; G8987-GO-CJ; G8988-GO-CI

== ENCOUNTER → 2017-10-21 | Outpatient (CLI) | payer OTHER | LOC: BMCIMAGING 13:08 | PROVIDERS: ATTEND Physician Assistant Surgical | DX: M51.26 Other intervertebral disc displacement, lumbar region (principal); M51.36 Other intervertebral disc degeneration, lumbar region; M54.12 Radiculopathy, cervical region ==

== ENCOUNTER → 2018-11-13 | Outpatient (CLI) | payer OTHER | LOC: FIMAGING 13:32 | PROVIDERS: ATTEND Physician Assistant Surgical | DX: M51.24 Other intervertebral disc displacement, thoracic region (principal) ==